=== PATIENT | female | born 1970 | race Caucasian/White ===

== ENCOUNTER 2022-11-18 07:15 | Day surgery (SDC) | payer OTHER ==
[~2022-11-18] VITALS: Ht 157.5 cm; Wt 97.1 kg
[2022-11-18] VITALS (15 sets, daily range): BP systolic 117–137; BP diastolic 60–88
[~2022-11-18 07:15] MED LIST: LIDOCAINE HCL 1% 10 MG/ML 10ML VIAL ONE; SODIUM BICARBONATE 4% (2.4MEQ) 5ML VIAL IV ONE
[2022-11-18] MEDS ORDERED: FENTANYL CITRATE/PF 50MCG/ML 2ML VIAL ONE (09:07)
[2022-11-18] MEDS ORDERED: FENTANYL CITRATE/PF 50MCG/ML 2ML VIAL IV ONE (09:45)
[2022-11-18] MEDS ORDERED: HYDROCODONE/ACETAMINOPHEN 5/325MG TABLET PO PRN (09:45)
[2022-11-18] MEDS ORDERED: LIDOCAINE HCL 1% 10 MG/ML 10ML VIAL ONE (09:47)
[2022-11-18] MEDS ORDERED: FENTANYL CITRATE/PF 50MCG/ML 2ML VIAL IV NR (10:00)
[2022-11-18 12:29] LABS: HEMATOCRIT 35.3 % (36.0-48.0); HEMOGLOBIN 11.7 g/dL (12.0-16.0)
== END 2022-11-18 13:45 | disposition home or self-care (01) ==
LOC: RAD 07:15
PROVIDERS: ATTEND General Practice
DX: K75.81 Nonalcoholic steatohepatitis (NASH) (principal); K76.89 Other specified diseases of liver; B19.20 Unspecified viral hepatitis C without hepatic coma; E11.9 Type 2 diabetes mellitus without complications; E78.5 Hyperlipidemia, unspecified; Z79.899 Other long term (current) drug therapy; Z98.890 Other specified postprocedural states; Z20.822 Contact with and (suspected) exposure to COVID-19
CPT/HCPCS: 36415; 47000; 76942; 85014; 85018; 87426; C9803; J3010; J3490; Z7610; 99152; 99153; G0500